=== PATIENT | female | born 1965 | race Caucasian/White ===

== ENCOUNTER 2021-02-05 10:19 | Inpatient (IN) | payer BC ==
[2021-02-05] MEDS ORDERED: Morphine 4 MG/ML VIAL IVPUSH ONE ×2 (10:47→13:26)
[2021-02-05] MEDS ORDERED: Ondansetron 4 MG/2 ML SDV IVPUSH STA (10:47)
--- NOTE | 2021-02-05 10:47 | EDM.PDOC ---
ED HPI GENERAL MEDICAL PROBLEM - General Chief Complaint: General Stated Complaint: abdominal pain Time Seen by Provider: 02/05/21 10:20 Source of Information: Reports: Patient History Limitations: Reports: No Limitations - History of Present Illness INITIAL COMMENTS - FREE TEXT/NARRATIVE: Patient is a 55 year old female that presents to the ER. Patient reports that at 5:30 this morning she woke with diarrhea. Patient reports that she has a history of diarrhea so did not think much about it. Patient reports that then at 6:30am she started having abdominal pain severe in nature. She reports that she continued to have diarrhea. Patient reports that when she arrive here, she had another BM diarrhea and vomited x2. She reports she is still having abdominal pain, but has improved a little after vomiting. Patient reports and RN reports it looked like BM and vomit have blood. Will hemo and gastroccult. Onset: Today Onset Date: 02/05/21 Onset Time: 05:30 Location: Reports: Abdomen Quality: Reports: Sharp, Stabbing Severity: Moderate Improves with: Reports: Other (Vomiting) Worsens with: Reports: None Associated Symptoms: Reports: Chest Pain, Nausea/Vomiting. Denies: Cough, cough w sputum, Diaphoresis, Fever/Chills, Headaches, Loss of Appetite, Malaise, Rash, Seizure, Shortness of Breath, Syncope, Weakness Abdomen Pain Score (Numeric/FACES): 7 - Related Data Allergies Allergy/AdvReac Type Severity Reaction Status Date / Time gluten Allergy Stomach Verified 02/05/21 13:46 Upset Home Meds: Home Meds LORazepam [Ativan] 1 mg PO BEDTIME 02/05/21 [History] Progesterone, Micronized [Progesterone] 500 mg PO BEDTIME 02/05/21 [History] ED ROS GENERAL - Review of Systems Review Of Systems: See Below Constitutional: Reports: Malaise, Weakness HEENT: Reports: No Symptoms Respiratory: Reports: No Symptoms Cardiovascular: Reports: Chest Pain (epigastric) Endocrine: Reports: No Symptoms GI/Abdominal: Reports: Abdominal Pain, Bloody Stool, Hematemesis, Nausea, Vomiting : Reports: No Symptoms Musculoskeletal: Reports: No Symptoms Skin: Reports: No Symptoms Neurological: Reports: No Symptoms Psychiatric: Reports: No Symptoms Hematologic/Lymphatic: Reports: No Symptoms Immunologic: Reports: No Symptoms ED EXAM, GENERAL - Physical Exam Exam: See Below Exam Limited By: No Limitations General Appearance: Alert, WD/WN, No Apparent Distress Eye Exam: Bilateral Eye: Normal Inspection, PERRL Ears: Normal External Exam, Normal Canal, Hearing Grossly Normal, Normal TMs Ear Exam: Bilateral Ear: Auricle Normal, Canal Normal, TM normal Nose: Normal Inspection, Normal Mucosa, No Blood Throat/Mouth: Normal Inspection, Normal Lips, Normal Teeth, Normal Gums, Normal Oropharynx, Normal Voice, No Airway Compromise Head: Atraumatic, Normocephalic Neck: Normal Inspection, Supple, Non-Tender, Full Range of Motion Respiratory/Chest: No Respiratory Distress, Lungs Clear, Normal Breath Sounds, No Accessory Muscle Use Cardiovascular: Normal Peripheral Pulses, Regular Rate, Rhythm, No Edema, No Gallop, No JVD, No Murmur, No Rub Peripheral Pulses: 2+: Radial (L), Radial (R), Posterior Tibial (L), Posterior Tibial (R) GI/Abdominal: Normal Bowel Sounds, Soft, No Distention, No Abnormal Bruit, Pelvis Stable, Tender (LUQ, diffuse). No: Guarding, Rigid Back Exam: Normal Inspection, Full Range of Motion. No: CVA Tenderness (L), CVA Tenderness (R) Extremities: Normal Inspection, Normal Range of Motion, Non-Tender, No Pedal Edema, Normal Capillary Refill Neurological: Alert, Oriented, Normal Cognition, No Motor/Sensory Deficits Psychiatric: Normal Affect, Normal Mood Skin Exam: Warm, Dry, Intact, Normal Color, No Rash Course - Vital Signs Last Recorded V/S: Last Vital Signs Temp 97.5 F 02/05/21 10:21 Pulse 71 02/05/21 10:21 Resp 18 02/05/21 10:21 BP 160/96 H 02/05/21 10:21 Pulse Ox 94 L 02/05/21 10:21 - Orders/Labs/Meds Orders: Active Orders 24 hr Category Date Time Status Patient Status Manage Transfer [TRANSFER] Routine ADT 02/05/21 13:52 Active Abdomen Pelvis w Cont [CT] Stat Exams 02/05/21 10:48 Ordered Resuscitation Status Routine Resus Stat 02/05/21 13:53 Ordered EKG 12 Lead [EK] Stat Ther 02/05/21 10:39 Ordered Labs: Laboratory Tests 02/05/21 02/05/21 02/05/21 Range/Units 10:07 10:08 10:08 WBC 30.4 H* (4.0-11.0) 10^3/uL RBC 4.56 (4.00-5.50) x10^6/uL Hgb 14.9 (12.0-16.0) g/dL Hct 45.3 (37.0-47.0) % MCV 99.3 H (83.0-97.0) fL MCH 32.7 H (27.0-32.0) pg MCHC 32.9 (32.0-36.0) g/dL RDW Coeff of Julia 12.8 (11.0-15.0) % Plt Count 319 (150-400) 10^3/uL Add Manual Diff Yes Neutrophils % (Manual) 42 (35-85) % Lymphocytes % (Manual) 54 (21-55) % Monocytes % (Manual) 1 L (2-12) % Eosinophils % (Manual) 3 (0-5) % Absolute Neutrophils 12.77 H (1.80-7.00) 10^3/uL Lymphocytes # (Manual) 16.42 H (1.00-4.80) 10^3/uL Monocytes # (Manual) 0.30 (0.00-0.80) 10^3/uL Eosinophils # (Manual) 0.91 H (0.00-0.45) 10^3/uL Smudge Cells Moderate H (NOT SEEN) Sodium 139 (136-145) mEq/L Potassium 3.9 (3.5-5.0) mEq/L Chloride 102 (98-106) mEq/L Carbon Dioxide 23 (21-32) mmol/L BUN 11 (7-18) mg/dL Creatinine 1.2 H (0.6-1.0) mg/dL Est Cr Clr Drug Dosing 37.60 mL/min Estimated GFR (MDRD) 46 L (>=60) mL/min Glucose 153 H (75-99) mg/dL Lactic Acid (0.4-2.0) mmol/L Calcium 9.4 (8.4-10.1) mg/dL Total Bilirubin 0.6 (0.0-1.0) mg/dL AST 36 (15-37) U/L ALT 54 (12-78) U/L Alkaline Phosphatase 76 (46-116) U/L Lactate Dehydrogenase (100-190) U/L Creatine Kinase (21-215) U/L Troponin I (0.00-0.06) ng/mL C-Reactive Protein < 0.2 L (0.2-0.8) mg/dL Total Protein 8.0 (6.4-8.2) g/dL Albumin 4.3 (3.4-5.0) g/dL Amylase 56 (25-115) U/L Lipase 178 (73-393) U/L Urine Color Yellow (YELLOW) Urine Appearance Clear (CLEAR) Urine pH 6.5 (4.5-8.0) Ur Specific Bertram 1.015 (1.003-1.020) Urine Protein Negative (NEGATIVE) mg/dL Urine Glucose (UA) Negative (NEGATIVE) mg/dL Urine Ketones Trace H (NEGATIVE) mg/dL Urine Occult Blood Trace-intact H (NEGATIVE) Urine Nitrite Negative (NEGATIVE) Urine Bilirubin Negative (NEGATIVE) Urine Urobilinogen 0.2 (0.2-1.0) EU/dL Ur Leukocyte Esterase Negative (NEGATIVE) Urine RBC 0-5 (0-5) /HPF Urine WBC 0-5 (0-5) /HPF Ur Squamous Epith Cells Occasional H (NOT SEEN) /HPF Blood Type Gel Antibody Screen 02/05/21 02/05/21 02/05/21 Range/Units 10:39 10:39 10:49 WBC (4.0-11.0) 10^3/uL RBC (4.00-5.50) x10^6/uL Hgb (12.0-16.0) g/dL Hct (37.0-47.0) % MCV (83.0-97.0) fL MCH (27.0-32.0) pg MCHC (32.0-36.0) g/dL RDW Coeff of Julia (11.0-15.0) % Plt Count (150-400) 10^3/uL Add Manual Diff Neutrophils % (Manual) (35-85) % Lymphocytes % (Manual) (21-55) % Monocytes % (Manual) (2-12) % Eosinophils % (Manual) (0-5) % Absolute Neutrophils (1.80-7.00) 10^3/uL Lymphocytes # (Manual) (1.00-4.80) 10^3/uL Monocytes # (Manual) (0.00-0.80) 10^3/uL Eosinophils # (Manual) (0.00-0.45) 10^3/uL Smudge Cells (NOT SEEN) Sodium (136-145) mEq/L Potassium (3.5-5.0) mEq/L Chloride (98-106) mEq/L Carbon Dioxide (21-32) mmol/L BUN (7-18) mg/dL Creatinine (0.6-1.0) mg/dL Est Cr Clr Drug Dosing mL/min Estimated GFR (MDRD) (>=60) mL/min Glucose (75-99) mg/dL Lactic Acid 1.5 (0.4-2.0) mmol/L Calcium (8.4-10.1) mg/dL Total Bilirubin (0.0-1.0) mg/dL AST (15-37) U/L ALT (12-78) U/L Alkaline Phosphatase (46-116) U/L Lactate Dehydrogenase 223 H (100-190) U/L Creatine Kinase 73 (21-215) U/L Troponin I < 0.017 (0.00-0.06) ng/mL C-Reactive Protein (0.2-0.8) mg/dL Total Protein (6.4-8.2) g/dL Albumin (3.4-5.0) g/dL Amylase (25-115) U/L Lipase (73-393) U/L Urine Color (YELLOW) Urine Appearance (CLEAR) Urine pH (4.5-8.0) Ur Specific Bertram (1.003-1.020) Urine Protein (NEGATIVE) mg/dL Urine Glucose (UA) (NEGATIVE) mg/dL Urine Ketones (NEGATIVE) mg/dL Urine Occult Blood (NEGATIVE) Urine Nitrite (NEGATIVE) Urine Bilirubin (NEGATIVE) Urine Urobilinogen (0.2-1.0) EU/dL Ur Leukocyte Esterase (NEGATIVE) Urine RBC (0-5) /HPF Urine WBC (0-5) /HPF Ur Squamous Epith Cells (NOT SEEN) /HPF Blood Type A POSITIVE Gel Antibody Screen Negative Meds: Medications Discontinued Medications Generic Name Dose Route Start Last Admin Trade Name Freq PRN Reason Stop Dose Admin Sodium Chloride 1,000 mls @ 1,000 mls/hr 02/05/21 10:48 02/05/21 11:02 Normal Saline IV 02/05/21 11:47 1,000 mls/hr .BOLUS ONE Administration Iopamidol 100 ml 02/05/21 12:36 02/05/21 12:37 Iopamidol 755 Mg/Ml 100 Ml Bottle IVPUSH 02/05/21 12:37 100 ml ONETIME ONE Administration Morphine Sulfate 4 mg 02/05/21 10:47 02/05/21 11:04 Morphine 4 Mg/Ml Vial IVPUSH 02/05/21 10:48 4 mg ONETIME ONE Administration Morphine Sulfate 4 mg 02/05/21 13:26 02/05/21 13:33 Morphine 4 Mg/Ml Vial IVPUSH 02/05/21 13:27 4 mg ONETIME ONE Administration Ondansetron HCl 4 mg 02/05/21 10:47 02/05/21 11:01 Ondansetron 4 Mg/2 Ml Sdv IVPUSH 02/05/21 10:48 4 mg NOW STA Administration - Radiology Interpretation Free Text/Narrative:: Abd/Pelvis with contrast CT: mild thikening of the bowel wall involving the descending and sigmoid colon, which could represent a diffuse colitis. CT Results Date: 02/05/21 CT Results Time: 13:20 - Re-Assessments/Exams Free Text/Narrative Re-Assessment/Exam: 02/05/21 13:50 Patient wbc is 30,000, this is consistent with previous labs on file. Platelets normal. Due to patient pain and colitis will admit. NPO. Will redraw labs in morning to watch her hgb. Currently, hemodynamically stable and hgb is normal and she has not had a BM or vomited since her initial arrival. Departure - Departure Time of Disposition: 13:50 Disposition: Admitted As Inpatient 65 Condition: Fair Clinical Impression: Colitis - Discharge Information *PRESCRIPTION DRUG MONITORING PROGRAM REVIEWED*: Not Applicable *COPY OF PRESCRIPTION DRUG MONITORING REPORT IN PATIENT SAKSHI: Not Applicable Referrals: PCP,None [Primary Care Provider] - Forms: ED Department Discharge Sepsis Event Note (ED) - Focused Exam Vital Signs: Vital Signs Temp Pulse Resp BP Pulse Ox 02/05/21 10:21 97.5 F 71 18 160/96 H 94 L - My Orders Last 24 Hours: My Active Orders 02/05/21 10:39 EKG 12 Lead [EK] Stat 02/05/21 10:48 Abdomen Pelvis w Cont [CT] Stat 02/05/21 13:52 Patient Status Manage Transfer [TRANSFER] Routine 02/05/21 13:53 Resuscitation Status Routine - Assessment/Plan Last 24 Hours: My Active Orders 02/05/21 10:39 EKG 12 Lead [EK] Stat 02/05/21 10:48 Abdomen Pelvis w Cont [CT] Stat 02/05/21 13:52 Patient Status Manage Transfer [TRANSFER] Routine 02/05/21 13:53 Resuscitation Status Routine Plan: PLEASE SEE RN NOTE FOR PFSH PLEASE USE ER H&P ADMIT H&P.
[2021-02-05] MEDS ORDERED: Sodium Chloride 0.9% 1,000 ML IV ONE (10:48)
[2021-02-05 10:55] LABS: CHLORIDE,CL 102 mEq/L (98-106); SODIUM,NA 139 mEq/L (136-145)
[2021-02-05] MEDS ORDERED: Iopamidol 755 Mg/ML 100 ML Bottle IVPUSH ONE (12:36)
[2021-02-05] MEDS ORDERED: Ondansetron 4 MG/2 ML SDV IV PRN (14:57)
[2021-02-05] MEDS ORDERED: Sodium Chloride 0.9% 1,000 ML IV SCH (14:57)
[2021-02-05] MEDS: Morphine 2 MG/ML SYRINGE IVPUSH PRN ×3 (17:56→22:25)
[2021-02-05] MEDS: LORazepam 0.5 MG Tab PO SCH (19:43)
[2021-02-05] MEDS ORDERED: Non-Formulary Medication 1 Each (Progesterone, Micronized [Progesterone] 100 MG Capsule) PO SCH (20:00)
[2021-02-05] MEDS: Temazepam 15 MG Cap PO PRN (23:57)
[2021-02-06] MEDS: Morphine 2 MG/ML SYRINGE IVPUSH PRN ×3 (03:02→12:23)
[2021-02-06] MEDS ORDERED: Sodium Chloride 0.9% 1,000 ML IV SCH (03:30)
[2021-02-06 07:44] LABS: CHLORIDE,CL 108 mEq/L (98-106); SODIUM,NA 143 mEq/L (136-145)
[2021-02-06] MEDS ORDERED: Pantoprazole 40 MG in Sodium Chloride 0.9% 100 ML IV SCH (10:30)
[2021-02-06] MEDS ORDERED: cefTRIAXone 1 GM Vial IVPUSH SCH (10:30)
[2021-02-06] MEDS ORDERED: methylPREDNISolone Sodium Succinate 125 MG/2 ML SDV IVPUSH SCH (10:30)
[2021-02-06] MEDS: metroNIDAZOLE/Normal Saline 500 MG in Premix Bag 1 BAG IV SCH ×2 (11:12→18:25)
--- NOTE | 2021-02-06 11:12 | PN ---
DATE: 02/06/2021 S: Mrs. Aguilar was admitted yesterday for acute colitis, apparently documented by CT of the abdomen. She presented with increasing diarrhea and bloody stools. She had 1 episode of vomiting as well that was Gastroccult- positive. The patient feels much better since admission. She came in with significant amount of abdominal pain and that has improved. Her diarrhea is slightly less as well. She apparently has a known and chronic history of diarrhea with an unidentified etiology. She had a colonoscopy 6 years ago, but admits to having persistent diarrhea for over 10 years. She denies that this was preceded by any fevers or chills. She has not had any elevated temps since admission and her vitals have been stable. O: GENERAL: She is pleasant, alert, and cooperative. HEENT: Grossly benign. NECK: Supple. LUNGS: Clear. CARDIAC: Tones regular. ABDOMEN: Soft and nontender. Good bowel sounds are noted. ASSESSMENT: 1. ACUTE COLITIS. 2. HISTORY OF CHRONIC LYMPHOCYTIC LEUKEMIA. 3. CHRONIC DIARRHEA. P: We will get stool studies including C. diff. culture, etc. The patient is going to be started on Flagyl and Rocephin along with low-dose Solu-Medrol until we get her workup completed. She will need colonoscopy in the near future to elucidate the etiology of her colitis. We will continue IV fluids until the patient seems to be tolerating oral intake. KARL/TASHA /[id number]
[2021-02-06] MEDS ORDERED: Pantoprazole 40 MG Vial IVPUSH SCH (11:30)
[2021-02-06] MEDS: Acetaminophen/oxyCODONE 325-5 MG Tab PO PRN (17:31)
[2021-02-06] MEDS: methylPREDNISolone Sodium Succinate 125 MG/2 ML SDV IVPUSH SCH (19:34)
[2021-02-06] MEDS: LORazepam 0.5 MG Tab PO SCH (19:34)
[2021-02-06] MEDS: Temazepam 15 MG Cap PO PRN (22:09)
[2021-02-07] MEDS: Morphine 2 MG/ML SYRINGE IVPUSH PRN ×2 (00:45→03:59)
[2021-02-07] MEDS: metroNIDAZOLE/Normal Saline 500 MG in Premix Bag 1 BAG IV SCH (03:56)
[2021-02-07 07:24] LABS: CHLORIDE,CL 104 mEq/L (98-106); SODIUM,NA 139 mEq/L (136-145)
[2021-02-07] MEDS: methylPREDNISolone Sodium Succinate 125 MG/2 ML SDV IVPUSH SCH (07:41)
[2021-02-07] MEDS: Acetaminophen/oxyCODONE 325-5 MG Tab PO PRN ×2 (07:59→12:00)
[2021-02-07] MEDS ORDERED: cefTRIAXone 1 GM Vial IVPUSH SCH (08:00)
[2021-02-07] MEDS ORDERED: Pantoprazole 40 MG Vial IVPUSH SCH (08:00)
--- NOTE | 2021-02-07 11:43 | DISCH ---
ADMISSION DIAGNOSES: 1. Colitis. 2. History of chronic lymphocytic leukemia. 3. History of known prior lymphocytic colitis via biopsy. BODY AFTER DISCHARGE DIAGNOSIS: HISTORY: The patient is a 55-year-old female who presented to our facility with acute onset of diarrhea and abdominal pain with I believe some low-grade temps. Cole Lorenzana evaluated her in our emergency room where she had lab, imaging, and scanning of her abdomen which showed possible diffuse colitis. Her white count is elevated related to her CLL and labs otherwise were all normal with negative CRP and negative lactic acid. Ultimately, Cole felt she needed hospitalization for her colitis. She was kept n.p.o., started on IV fluids. HOSPITAL COURSE: The patient did very well while here. I met her the day after admission and she has been basically asymptomatic since her admission. She has had no further diarrhea. I did order stool studies, but we have been unable to get one. Her hemoglobins have been stable. She has not spiked any temps and for the most part, she has absolutely no abdominal pain. Yesterday, she tolerated clear liquids and we are advancing her at this time, and she would like to go home. Initially she admitted to prior colonoscopies, but never biopsies in the past. I did however get a report from the surgeon in [place] who states that she has known biopsy-proven lymphocytic colitis and has elected in the past not to take anything regularly for this. The patient at this time appears clinically stable. We initially put her on IV antibiotics in the form of Flagyl and Rocephin, but her CRPs were negative. She is not having any further diarrhea and those are stopped. As long as she has no further loose or significant stool, I do not think we need to send her home with stool studies . I do think we need to rule out any other form of colitis other than her lymphocytic colitis and a repeat diagnostic colonoscopy will be scheduled for this Saturday and routine biopsies will be taken as expected. At this time, she will go home on her prior medications without any additions. She clinically looks well and I expect no significant issues. We will see her back later this week for colonoscopy. COMPLICATIONS: During her stay were none CONSULTATIONS: None. DISPOSITION: Discharged home. KARL/TASHA /[id number]
== END 2021-02-07 14:05 | disposition home or self-care (01) | DRG 249 ==
LOC: CC.ED 10:19 → CC.MS 13:53 → UNDOADMIN 14:00 → CC.MS 14:00
PROVIDERS: ADMIT Nurse Practitioner; ATTEND Family Medicine
DX: K52.9 Noninfective gastroenteritis and colitis, unspecified (principal); Z85.6 Personal history of leukemia; Z88.8 Allergy status to other drugs, medicaments and biological substances; Z79.899 Other long term (current) drug therapy
CPT/HCPCS: 36415; 74177; 80048; 80053; 81001; 82150; 82550; 83605; 83615; 83690; 84484; 85025; 86140; 86850; 86900; 86901; 93005; 96374; 96375; 96376; 99285-25; A9270-GY; C9113; J0696; J2270; J2405; J2930; J3490; J7030; Q9967

== ENCOUNTER → 2021-02-10 | Day surgery (SDC) | payer BC ==
[~2021-02-10] MED LIST: Ketamine 200 MG/20 ML MDV ONE; Ondansetron 4 MG/2 ML SDV ONE; Propofol 200 MG/20 ML SDV ONE; fentaNYL 100 MCG/2 ML SDV ONE
[2021-02-10] MEDS: Lactated Ringers 1,000 ML IV SCH (10:26)
--- NOTE | 2021-02-10 12:46 | OR ---
DATE OF OPERATION: 02/10/2021 PREOPERATIVE DIAGNOSIS: COLITIS. POSTOPERATIVE DIAGNOSIS: COLITIS. SURGEON: Yosi Tilley MD PROCEDURE: DIAGNOSTIC COLONOSCOPY WITH RANDOM BIOPSIES X6. ANESTHESIA: MAC. COMPLICATIONS: None. SPECIMEN: Random colon biopsies from the terminal ileum to the rectum x6. FINDINGS: 1. Full-length colonoscopy. 2. Mild sigmoid diverticulosis. 3. No obvious signs of visual colitis. RECOMMENDATIONS: Recommend to follow up in the next week for path reports as the patient has a history apparently of lymphocytic colitis and was recently hospitalized for similar, but worsened symptoms. INDICATIONS: Recent hospitalization for colitis via CT scan with prior history of lymphocytic colitis. DESCRIPTION OF PROCEDURE: The patient was prepped and draped, placed in the left lateral decubitus position. A lubricated Olympus colonoscope was inserted and easily advanced to the cecum. Direct visualization of the ileocecal valve and appendiceal orifice was accomplished. The bowel prep was excellent. Upon withdrawal, we did intubate into the terminal ileum, which was grossly benign. We did two biopsies there. The scope was brought back into the colon. Throughout the entire length of the colon, I could find no signs of any polyps, masses, ulceration, or bleeding sites. There were no vascular abnormalities or signs of obvious colitis. The patient does have some mild diverticular disease in the mid sigmoid colon to the rectosigmoid junction without inflammatory change. I did do random colon biopsies as stated earlier from the terminal ileum. One was done at the hepatic flexure, transverse colon, descending, sigmoid, and rectal vault. Retroflexion of the scope in the rectum did not show any perianal lesions. Air was then suctioned, scope removed without complication. KARL/TASHA /[id number]
== END ==
LOC: CC.SDS 09:59
PROVIDERS: ATTEND Family Medicine
DX: K52.9 Noninfective gastroenteritis and colitis, unspecified (principal); K57.30 Diverticulosis of large intestine without perforation or abscess without bleeding
CPT/HCPCS: 00811; J2405; J2704; J3010; J7120

== ENCOUNTER 2023-12-12 06:15 | Day surgery (SDC) | payer BC ==
[2023-12-12] MEDS: Cyclopentolat/Tropic/Phenyleph 1 ML Ophth Drop SDV EYERT SCH (06:38)
[2023-12-12] MEDS: Lactated Ringers 1,000 ML IV SCH (06:39)
[2023-12-12] MEDS ORDERED: Midazolam 1 MG/ML 2 ML SDV ONE (06:55)
[2023-12-12] MEDS ORDERED: fentaNYL 50 MCG/ML SDV ONE (06:55)
[2023-12-12] MEDS: MOXIFLOXACIN PF in BSS 1 MG/ML VIAL ICORN ONE (07:08)
[2023-12-12] MEDS: Brimonidine 0.2% Ophth Soln 5 ML Bottle EYERT ONE (07:08)
[2023-12-12] MEDS: Phenyleprhine/Ketorolac 4 ML Vial IR ONE (07:08)
[2023-12-12] MEDS: Povidone-Iodine 5% Sterile Ophth Soln 30 ML Bottle EYERT ONE (07:08)
[2023-12-12] MEDS: Lidocaine 1% 5 ML VIAL INJECT ONE (07:08)
[2023-12-12] MEDS: Tetracaine HCl/PF 0.5% 4 ML Bottle EYERT ONE (07:08)
[2023-12-12] MEDS: acetaZOLAMIDE 500 MG Cap.ER PO ONE (07:50)
== END 2023-12-12 08:20 | disposition home or self-care (01) ==
LOC: CC.SDS 06:15
PROVIDERS: ATTEND Ophthalmology
DX: H26.8 Other specified cataract (principal); I10 Essential (primary) hypertension; F41.1 Generalized anxiety disorder; C91.10 Chronic lymphocytic leukemia of B-cell type not having achieved remission; Z79.899 Other long term (current) drug therapy
CPT/HCPCS: A9270-GY; J1097; J2250; J3010; J3490; J7120; V2632

== ENCOUNTER 2024-01-16 05:50 | Day surgery (SDC) | payer BC ==
[2024-01-16] MEDS: Cyclopentolat/Tropic/Phenyleph 1 ML Ophth Drop SDV EYEBOTH SCH (06:17)
[2024-01-16] MEDS: Lactated Ringers 1,000 ML IV SCH (06:25)
[2024-01-16] MEDS ORDERED: Midazolam 1 MG/ML 2 ML SDV ONE (06:49)
[2024-01-16] MEDS ORDERED: fentaNYL 50 MCG/ML SDV ONE (06:49)
[2024-01-16] MEDS: Lidocaine 1% 5 ML VIAL INJECT ONE (06:59)
[2024-01-16] MEDS: MOXIFLOXACIN PF in BSS 1 MG/ML VIAL ICORN ONE (06:59)
[2024-01-16] MEDS: Phenyleprhine/Ketorolac 4 ML Vial IR ONE (06:59)
[2024-01-16] MEDS: Brimonidine 0.2% Ophth Soln 5 ML Bottle EYELF ONE (06:59)
[2024-01-16] MEDS: Povidone-Iodine 5% Sterile Ophth Soln 30 ML Bottle EYELF ONE (06:59)
[2024-01-16] MEDS: Tetracaine HCl/PF 0.5% 4 ML Bottle EYELF ONE (06:59)
== END 2024-01-16 08:01 | disposition home or self-care (01) ==
LOC: CC.SDS 05:50
PROVIDERS: ATTEND Ophthalmology
DX: H26.8 Other specified cataract (principal); I10 Essential (primary) hypertension; Z79.899 Other long term (current) drug therapy
CPT/HCPCS: J1097; J2250; J3010; J3490; J7120; V2632

== ENCOUNTER 2024-06-12 11:12 | Day surgery (SDC) | payer BC ==
[2024-06-12] MEDS: Lactated Ringers 1,000 ML IV SCH (11:39)
[2024-06-12] MEDS ORDERED: Propofol 200 MG/20 ML SDV ONE ×2 (12:15)
[2024-06-12] MEDS ORDERED: Midazolam 1 MG/ML 2 ML SDV ONE (12:15)
[2024-06-12] MEDS ORDERED: fentaNYL 50 MCG/ML SDV ONE ×2 (12:15)
[2024-06-12] MEDS ORDERED: Ketamine 200 MG/20 ML MDV ONE (12:15)
== END 2024-06-12 13:44 | disposition home or self-care (01) ==
LOC: CC.SDS 11:12
PROVIDERS: ATTEND Family Medicine
DX: K57.30 Diverticulosis of large intestine without perforation or abscess without bleeding (principal); C91.10 Chronic lymphocytic leukemia of B-cell type not having achieved remission; F41.1 Generalized anxiety disorder
CPT/HCPCS: 00811; J2250; J2704; J3010; J3490; J7120